=== PATIENT | male | born 1995 | race Caucasian/White ===

== ENCOUNTER 2017-07-06 10:44 | Emergency (ER) | payer MEDICAID, OTHER ==
[~2017-07-06] VITALS: Ht 175.3 cm; Wt 70.0 kg
[~2017-07-06 10:44] MED LIST: AMOX500T PO; PRED50 PO
[2017-07-06 10:55] VITALS: BP 149/84; PULSE 70; RESP 18; TEMP 98.3; O2SAT 100
[2017-07-06] MEDS ORDERED: ASPIRIN 81 MG CHEW TAB PO ONE (12:00)
[2017-07-06] MEDS ORDERED: SODIUM CHLORID 0.9% 500 ML INJ 500 ML IV ONE (12:00)
[2017-07-06] MEDS ORDERED: SODIUM CHLORIDE 0.9% FLUSH 10 ML FLUSH IVF PRN (12:00)
--- NOTE | 2017-07-06 12:13 | PD ---
HPI Chief Complaint: Chest Pain Time Seen by Provider: 11:51 Travel History International Travel<30 days: No Contact w/Intl Traveler<30days: No Traveled to known affect area: No History of Present Illness HPI 21-year-old male resents emergency department with 2 day history of left-sided anterior chest pain, worse with deep breath. Patient states it started suddenly Monday evening with pain of 9 out of 10. Patient states he did workout that day but did not have pain at that time. Patient states the pain has improved somewhat but has been persistent and currently is about a 4 out of 10. He states it is worse with deep breath and certain movements. He identifies the pain in the left anterior lateral chest. He denies shortness of breath however no wheezing. No nausea, vomiting, or fever, or chills. Patient denies any numbness or tingling. Patient states he has been drinking more "energy drinks" than normal in the last week but has stopped since the symptoms started. He has no known drug allergies. COUNT INCLUDES THE [facility] Past Medical History Medical History: Denies Significant Hx Tetanus Vaccination: Unknown Influenza Vaccination: No Past Surgical History Surgical History: No Previous Surgery Social History Alcohol Use: Yes (SOCIALLY) Tobacco Use: No Substance Use: No Allergies-Medications (Allergen,Severity, Reaction): Coded Allergies: No Known Allergies (Verified Adverse Reaction, Unknown, 07/06/17) Reported Meds & Prescriptions Reported Meds & Active Scripts Active No Active Prescriptions or Reported Medications Review of Systems Except as stated in HPI: all other systems reviewed are Neg General / Constitutional: No: Fever Eyes: No: Visual changes HENT: No: Headaches Cardiovascular: Positive: Chest Pain or Discomfort (See history of present illness), No: Syncope, Dyspnea on exertion Respiratory: Positive: Pleuritic Pain, No: Shortness of Breath Gastrointestinal: No: Abdominal Pain Genitourinary: No: Dysuria Musculoskeletal: No: Pain Skin: No Rash Neurologic: No: Weakness Psychiatric: No: Depression Endocrine: No: Polydipsia Hematologic/Lymphatic: No: Easy Bruising Physical Exam Narrative GENERAL: Patient has no obvious distress. SKIN: Warm and dry. Normal color. Normal turgor. No signs of trauma. No rash. HEAD: Atraumatic. Normocephalic. EYES: Pupils equal and round. No scleral icterus. No injection or drainage. ENT: No nasal bleeding or discharge. Mucous membranes pink and moist. Pharynx is clear. Airway is patent NECK: Trachea midline. Supple and nontender. CARDIOVASCULAR: Regular rate and rhythm. No murmurs gallops or rubs per RESPIRATORY: No accessory muscle use. Clear to auscultation. Breath sounds equal bilaterally. No reproducible pain with palpation to the anterior chest wall. Patient does complain of pleuritic pain with deep breath. GASTROINTESTINAL: Abdomen soft, non-tender, nondistended. Hepatic and splenic margins not palpable. MUSCULOSKELETAL: Extremities without clubbing, cyanosis, or edema. No obvious deformities. NEUROLOGICAL: Awake and alert. No obvious cranial nerve deficits. Motor grossly within normal limits. Five out of 5 muscle strength in the arms and legs. Normal speech. PSYCHIATRIC: Appropriate mood and affect; insight and judgment normal. Data Data Last Documented VS Vital Signs Date Time Temp Pulse Resp B/P (MAP) Pulse Ox O2 Delivery O2 Flow Rate FiO2 07/06/17 10:55 98.3 70 18 149/84 (105) 100 Orders Orders Electrocardiogram (07/06/17 ) Electrocardiogram (07/06/17 11:55) Ckmb (Isoenzyme) Profile (07/06/17 11:55) Complete Blood Count With Diff (07/06/17 11:55) Comprehensive Metabolic Panel (07/06/17 11:55) D-Dimer (07/06/17 11:55) Magnesium (Mg) (07/06/17 11:55) Prothrombin Time / Inr (Pt) (07/06/17 11:55) Act Partial Throm Time (Ptt) (07/06/17 11:55) Troponin I (07/06/17 11:55) Lipase (07/06/17 11:55) Chest, Single Ap (07/06/17 11:55) Ecg Monitoring (07/06/17 11:55) Bilateral Bp Monitoring (07/06/17 11:55) Iv Access Insert/Monitor (07/06/17 11:55) Oximetry (07/06/17 11:55) Oxygen Administration (07/06/17 11:55) Aspirin Chew (Aspirin Chew) (07/06/17 12:00) Sodium Chloride 0.9% Flush (Ns Flush) (07/06/17 12:00) Sodium Chlorid 0.9% 500 Ml Inj (Ns 500 M (07/06/17 12:00) CKMB (07/06/17 12:10) CKMB% (07/06/17 12:10) Labs Laboratory Tests Test 07/06/17 12:10 White Blood Count 7.3 TH/MM3 Red Blood Count 5.02 MIL/MM3 Hemoglobin 15.3 GM/DL Hematocrit 45.2 % Mean Corpuscular Volume 89.9 FL Mean Corpuscular Hemoglobin 30.5 PG Mean Corpuscular Hemoglobin Concent 34.0 % Red Cell Distribution Width 12.8 % Platelet Count 232 TH/MM3 Mean Platelet Volume 8.1 FL Neutrophils (%) (Auto) 60.1 % Lymphocytes (%) (Auto) 30.1 % Monocytes (%) (Auto) 7.7 % Eosinophils (%) (Auto) 1.8 % Basophils (%) (Auto) 0.3 % Neutrophils # (Auto) 4.4 TH/MM3 Lymphocytes # (Auto) 2.2 TH/MM3 Monocytes # (Auto) 0.6 TH/MM3 Eosinophils # (Auto) 0.1 TH/MM3 Basophils # (Auto) 0.0 TH/MM3 CBC Comment DIFF FINAL Differential Comment Prothrombin Time 11.7 SEC Prothromb Time International Ratio 1.2 RATIO Activated Partial Thromboplast Time 25.3 SEC D-Dimer Quantitative (PE/DVT) LESS THAN 0.19 MG/L FEU Blood Urea Nitrogen 14 MG/DL Creatinine 1.06 MG/DL Random Glucose 80 MG/DL Total Protein 7.2 GM/DL Albumin 3.9 GM/DL Calcium Level 8.5 MG/DL Magnesium Level 2.0 MG/DL Alkaline Phosphatase 58 U/L Aspartate Amino Transf (AST/SGOT) 24 U/L Alanine Aminotransferase (ALT/SGPT) 51 U/L Total Bilirubin 0.5 MG/DL Sodium Level 140 MEQ/L Potassium Level 3.9 MEQ/L Chloride Level 103 MEQ/L Carbon Dioxide Level 30.3 MEQ/L Anion Gap 7 MEQ/L Estimat Glomerular Filtration Rate 87 ML/MIN Total Creatine Kinase 162 U/L Creatine Kinase MB 1.3 NG/ML Troponin I LESS THAN 0.02 NG/ML Lipase 118 U/L MDM Medical Decision Making Medical Screen Exam Complete: Yes Emergency Medical Condition: Yes Differential Diagnosis Atypical chest pain. Cardiac syndrome. Pericarditis. Chest wall strain. PE. Narrative Course Patient appears medically stable at time of exam. EKG and chest x-ray are ordered. Labs ordered including CBC, CMP, cardiac panel, urinalysis, coagulation studies. IV access is obtained and the patient is given 500 mL of normal saline bolus. Patient is given 324 mg chewable aspirin p.o. Chest x-ray is unremarkable per radiologist. CBC is unremarkable. CMP is unremarkable. D-dimer is negative. Troponin is less than 0.2 per Findings are discussed with the patient, and I feel that this is muscle skeletal nature versus other etiology. Patient is felt to be stable for discharge with treatment with ibuprofen, Tylenol, heat, gentle stretching and follow-up if symptoms do not improve or worsen as needed Diagnosis Primary Impression: Chest wall muscle strain Qualified Codes: S29.011A - Strain of muscle and tendon of front wall of thorax, initial encounter Referrals: Primary Care Physician Patient Instructions: Chest Pain (ED), General Instructions Additional Instructions: Chest x-ray is unremarkable per radiologist. CBC is unremarkable. CMP is unremarkable. D-dimer is negative. Troponin is less than 0.2 per Findings are discussed with the patient, and I feel that this is muscle skeletal nature versus other etiology. Patient is felt to be stable for discharge with treatment with ibuprofen, Tylenol, heat, gentle stretching and follow-up if symptoms do not improve or worsen as needed Med/Other Pt SpecificInfo: No Meds Exist/No RX given Scripts No Active Prescriptions or Reported Meds Disposition: 01 DISCHARGE HOME Condition: Stable [place] July 06, 2017 12:13
--- NOTE | 2017-07-06 12:41 | RADRPT ---
EXAM DATE: 07/06/2017 12:31 PM EDT AGE/SEX: 21 years / Male INDICATIONS: Chest pain. CLINICAL DATA: This is the patient's initial encounter. Patient reports that signs and symptoms have been present for 2 days and indicates a pain score of 4/10. MEDICAL/SURGICAL HISTORY: None. None. COMPARISON: No prior exams available for comparison. FINDINGS: A single AP view of the chest demonstrates the lungs to be symmetrically aerated without evidence of mass, infiltrate or effusion. The cardiomediastinal contours are unremarkable. Osseous structures a re intact. CONCLUSION: No acute intrathoracic disease. Electronically signed by: Crow Purvis MD 07/06/2017 12:40 PM EDT
[2017-07-06 12:43] LABS: AUTOMATED NEUTROPHIL # 4.4 TH/MM3 (1.8-7.7); BASOPHIL % 0.3 % (0.0-2.0); EOSINOPHIL # 0.1 TH/MM3 (0-0.4); EOSINOPHIL % 1.8 % (0.0-4.0); HEMATOCRIT 45.2 % (39.0-51.0); HEMOGLOBIN 15.3 GM/DL (13.0-17.0); LYMPH % 30.1 % (9.0-44.0); LYMPHOCYTE # 2.2 TH/MM3 (1.0-4.8); MEAN CELL VOLUME 89.9 FL (80.0-100.0); MEAN CORPUSCULAR HEMOGLOBIN 30.5 PG (27.0-34.0); MEAN PLATELET VOLUME 8.1 FL (7.0-11.0); MONO % 7.7 % (0.0-8.0); MONOCYTE # 0.6 TH/MM3 (0-0.9); NEUT % 60.1 % (16.0-70.0); PLATELET COUNT 232 TH/MM3 (150-450); RED BLOOD COUNT 5.02 MIL/MM3 (4.50-5.90); RED CELL DISTRIBUTION WIDTH 12.8 % (11.6-17.2); WHITE BLOOD COUNT 7.3 TH/MM3 (4.0-11.0)
[2017-07-06 13:01] LABS: ALBUMIN 3.9 GM/DL (3.4-5.0); AST (GOT) 24 U/L (15-37); BICARBONATE 30.3 MEQ/L (21.0-32.0); BLOOD UREA NITROGEN 14 MG/DL (7-18); CALCIUM 8.5 MG/DL (8.5-10.1); CHLORIDE 103 MEQ/L (98-107); CREATININE 1.06 MG/DL (0.60-1.30); GLOMERULAR FILTRATION RATE 87 ML/MIN (>89); GLUCOSE,RANDOM 80 MG/DL (74-106); SODIUM (NA) 140 MEQ/L (136-145)
[2017-07-06 13:05] LABS: INTERNATIONAL NORMALIZED RATIO 1.2 RATIO; PROTHROMBIN TIME - PATIENT 11.7 SEC (9.8-11.6)
[2017-07-06 13:06] LABS: ALKALINE PHOSPHATASE 58 U/L (45-117); ALT (GPT) 51 U/L (12-78); TOTAL BILIRUBIN ADULT 0.5 MG/DL (0.2-1.0); TOTAL PROTEIN 7.2 GM/DL (6.4-8.2); TROPONIN I LESS THAN 0.02 NG/ML (0.02-0.05)
[2017-07-06 13:07] LABS: D-DIMER LESS THAN 0.19 MG/L FEU (0.00-0.50)
--- NOTE | 2017-07-07 07:20 | EKG ---
Date Performed: 07/06/2017 Time Performed: 11:09:31 PTAGE: 21 years EKG: SINUS BRADYCARDIA POSSIBLE RIGHT VENTRICULAR CONDUCTION DELAY BORDERLINE ECG NO PREVIOUS TRACING DOCTOR: Stanley Singh Interpretating Date/Time 07/07/2017 07:17:35
== END 2017-07-06 13:55 | disposition home or self-care (01) ==
LOC: NEPD 10:44
DX: S29.011A Strain of muscle and tendon of front wall of thorax, initial encounter (principal); R94.31 Abnormal electrocardiogram [ECG] [EKG]; X58.XXXA Exposure to other specified factors, initial encounter
CPT/HCPCS: 71045; 80053; 82550; 82552; 83690; 83735; 84484; 85025; 85379; 85610; 85730; 93005; 96360; 96361; 99285; J7040